=== PATIENT | male | born 1955 | race Caucasian/White ===

== ENCOUNTER 2016-06-16 22:08 | Emergency (ER) | payer OTHER, SELFPAY ==
[2016-06-16 21:11] LABS: BASOPHILS 0.6 %; BASOPHILS ABSOLUTE 0.04 10/3/uL (0.0-0.16); EOSINOPHILS 2.8 %; HEMATOCRIT 37.9 % (40.0-51.0); HEMOGLOBIN 12.5 g/dL (13.6-17.8); IMMATURE GRANULOCYTES 0.3 %; IMMATURE GRANULOCYTES ABSOLUTE 0.02 10/3/uL (0.0-0.11); LYMPHOCYTES 17.2 %; LYMPHOCYTES ABSOLUTE 1.21 10/3/uL (0.67-4.30); MEAN CORPUSCULAR HEMOGLOB 28.9 pg (26.0-34.0); MEAN CORPUSCULAR VOLUME 87.7 fL (80-100); MEAN PLATELET VOLUME 12.1 fL (9.2-13.0); MONOCYTES 12.2 %; MONOCYTES ABSOLUTE 0.86 10/3/uL (0.21-1.20); NEUTROPHILS 66.9 %; NEUTROPHILS ABSOLUTE 4.72 10/3/uL (2.02-8.40); PLATELET COUNT 159 10/3/uL (150-400); RBC DISTRIBUTION WIDTH 13.6 % (12.0-16.0); RED CELL COUNT 4.32 10/6/uL (4.7-6.1); WHITE BLOOD CELLS 7.1 10/3/uL (4.5-10.5)
[2016-06-16 21:12] LABS: MANUAL DIFF NO %
[2016-06-16 21:19] LABS: INTERNATIONAL NORMAL RATI 1.1 UNITS (-); PARTIAL THROMBO TIME 28.8 SEC (22.5-37.2); PROTIME (NOT ORD) 13.9 SEC (12.0-14.5)
[2016-06-16 21:28] LABS: BUN (BLOOD UREA NITROGEN) 20 MG/DL (6-23); CALCIUM, SERUM 8.9 MG/DL (8.5-10.4); CHEST PAIN PROFILE TAT 0 Hrs 23 Mins; CHLORIDE, SERUM 108 MMOL/L (96-112); CO2 (CARBON DIOXIDE) 28 MMOL/L (24-34); CREATININE 1.39 MG/DL (0.70-1.30); GFR AFRICAN AMERICAN 63 ML/MIN (>=60); GFR NON AFRICAN AMERICAN 54 ML/MIN (>=60); GLUCOSE, SERUM 289 MG/DL (60-99); POTASSIUM, SERUM 4.1 MMOL/L (3.5-5.3); SODIUM, SERUM 143 MMOL/L (135-148); TROPONIN I <0.02 NG/ML (<0.05)
[~2016-06-16 22:08] MED LIST: ACET500CAP PO; APRES25 PO; APRES50 PO; ASA5GR PO; ASABAYER PO; ASAEC PO; AUG500 PO; AUG875 PO; BENICAR HCT1 TA2 PO; BENICAR HCT1 TAB PO; BENICAR PO; BENICAR20 PO; BENICAR40 PO; CARDCD120 PO; CARDCD180 PO; CEFADROXIL1 GM PO; CENTRUM TAB1 TAB PO; COUMADIN4 MG PO; COUMADIN7.5 MG PO; DSS PO; DURICEF; DURICEF PO; GLUCOPHAGE1000 MG PO; HCTZ PO; HUMALOG KW200 UNIT/1; HUMALOG KW200 UNIT/1 SC; HUMALOG SC; INSNOVN SC; K-TABS10 MEQ PO; L20 PO; LAM250 PO; LEVEMIR SC; LIPITOR10 PO; LYRICA50 PO; LYRICA75 PO; MAX25 PO; MONODOX100 MG PO; MULTIPLE VIT PO; MULTIVIT/MIN PO; NABUMETONE750 MG PO; NEUR300 PO; NORV10 PO; NORV5 PO; NOVOLOG SC; PLAVIX PO; PRILO PO; PRILOSEC40 MG PO; PRIN20 PO; PROVHFA INH; RELA5 PO; RIFADIN150 MG PO; TOUJEO SC; TRESIBA FL200 UNIT/1 SC; ZOCOR40 PO; [UNRECOGNIZED DRUG - REMARK]; [UNRECOGNIZED DRUG - REMARK] PO; [UNRECOGNIZED DRUG - REMARK] PO
[2016-09-03] MEDS ORDERED: KLOR-CON 1010 MEQ PO (10:45)
[2016-09-07] MEDS ORDERED: NORCO1 TAB PO (12:04)
[2016-09-13] MEDS ORDERED: PLAVIX PO (15:17)
[2016-09-13] MEDS ORDERED: LIPITOR10 PO (15:17)
[2016-09-13] MEDS ORDERED: CARDCD180 PO (15:17)
[2016-09-13] MEDS ORDERED: LYRICA75 PO (15:17)
[2016-09-13] MEDS ORDERED: BENICAR40 PO (15:17)
[2016-09-13] MEDS ORDERED: PRILO PO (15:18)
[2016-09-13] MEDS ORDERED: HUMALOG SC (15:18)
[2016-09-13] MEDS ORDERED: TOUJEO SC (15:19)
[2016-09-13] MEDS ORDERED: L20 PO (15:19)
[2016-09-13] MEDS ORDERED: ASABAYER PO (15:19)
[2016-09-13] MEDS ORDERED: NORV5 PO (15:19)
[2016-09-13] MEDS ORDERED: MULTIVITAMI1 PO (15:19)
[2016-09-13] MEDS ORDERED: KLOR-CON 1010 MEQ PO (15:20)
== END 2016-06-16 23:24 | disposition home or self-care (01) ==
LOC: ER 22:08
PROVIDERS: Nurse Practitioner Acute Care
DX: E87.70 Fluid overload, unspecified (principal); E11.22 Type 2 diabetes mellitus with diabetic chronic kidney disease; N18.9 Chronic kidney disease, unspecified; I12.9 Hypertensive chronic kidney disease with stage 1 through stage 4 chronic kidney disease, or unspecified chronic kidney disease; Z86.73 Personal history of transient ischemic attack (TIA), and cerebral infarction without residual deficits; Z79.82 Long term (current) use of aspirin; Z79.4 Long term (current) use of insulin; Z79.899 Other long term (current) drug therapy
CPT/HCPCS: 71010; 80048; 82962; 83735; 83880; 84484; 85025; 85610; 85730; 93005; 96374; 99285; A9270-GY